=== PATIENT | female | born 1970 | race Caucasian/White ===

== ENCOUNTER → 2024-10-19 | Outpatient (CLI) | payer OTHER ==
[2024-10-19 14:33] VITALS: BP 125/81; PULSE 66; RESP 18; TEMP 97.8
--- NOTE | 2024-10-19 14:54 | P.SLEEP ---
History of Present Illness DATE: 10/19/2024 CONSULTATION/NEW PATIENT EVALUATION HISTORY OF PRESENT ILLNESS/SLEEP-WAKE EVALUATION: 54-year-old lady had been e valuated in the sleep center for possible obstructive sleep apnea hypopnea syndrome. SLEEP SCHEDULE: Usually sleep schedule p.m. to 7 AM on working days and from 11 PM to 8 AM on weekend. FALLING ASLEEP: Patient has difficulties with falling asleep, although no TV in bedroom. DURING SLEEP: Patient sleeps on the side position with loud snoring, witnessed episodes of stop breathing during the sleep. Patient wakes up from sleep about 5 times with 1 episode of nocturia. Positive history of dry mouth, gasping for air, sweating, heartburn, coughing. No history of hypnogogical hallucinations, sleep paralysis, or cataplexy. DURING THE DAY/WAKE STATE: In the morning patient wake up tired, has difficulties to pay attention, has problems with concentration. [place] sleepiness scale is 4. Patient may take 1 nap at afternoon. PAST MEDICAL HISTORY: Knee problems. PAST SURGICAL HISTORY: Partial hysterectomy, right knee replacement. MEDICATIONS: Please see below. SOCIAL HISTORY: See below. FAMILY HISTORY: See below. REVIEW OF SYSTEMS: Loud snoring, multiple awakenings from sleep. No fevers. No double vision. No recent chest pain. No shortness of breath. No abdominal pain. No bleeding episodes. No blood in urine. No seizure episodes. PHYSICAL EXAMINATION: GENERAL: A pleasant patient without any distress. VITAL SIGNS: See below, weight 224.2 pounds, BMI 37.6. HEENT: PERRLA, EOMI. Evaluation of oropharynx showed tongue protrudes midline, low position of soft palate Mallampati 3/4. NECK: Supple. No JVD. Thyroid is not palpable. 15.5 inches in circumference. LUNGS: Clear to percussion and to auscultation. Good air exchange. No wheezing or rhonchi. HEART: S1, S2 regular. No murmurs, gallops or rubs. ABDOMEN: Soft and nontender. Bowel sounds are present. No organomegaly appreciated. EXTREMITIES: No clubbing or cyanosis. CLINICAL DOCUMENTATION DEVELOPER: Awake, alert, and oriented x3. Cranial nerves 2 to 7 intact. There is no fasciculation or atrophy noted. No focal deficits observed. ASSESSMENT: 1. Loud snoring, witnessed episodes of stop breathing during the sleep, extremely low position of soft palate Mallampati 34, retrognathia millimeters. Obstructive sleep apnea hypopnea syndrome. 2. Obesity, BMI 37.4. 3. Status post tonsillectomy. 4. Status post partial hysterectomy. 5 status post right knee replacement. PLAN: 1. Polysomnography for evaluation of patient's breathing during sleep. 2. Following plan after reading sleep study. 3. Preferable position during sleep on the side. 4. No driving if patient feels any sleepiness. Patient is aware of civil and criminal liability for unsafe driving. 5. Sleep hygiene with regular sleep time for at least 7.5-8 hours. 6. Watching and losing weight. Thank you very much for referring this patient for consultation. Sincerely, Marin Camacho MD, PhD, FAASM. Diplomat of [employer], Sleep Medicine Board by [employer] [employer] [employer] [facility] [place] cc: Marcus Jeronimo MD Past Medical History Additional Past Medical History / Comment(s): Inconclusive sleep test in the past, History of Any Multi-Drug Resistant Organisms: None Reported Past Surgical History: Hysterectomy, Orthopedic Surgery, Tonsillectomy Additional Past Surgical History / Comment(s): Partial hysterectomy, r knee replacement Past Psychological History: No Psychological Hx Reported Smoking Status: Never smoker Past Alcohol Use History: Rare Past Drug Use History: None Reported - Past Family History Mother Additional Family Medical History / Comment(s): BREAST CANCER Father Family Medical History: Thyroid Disorder Physical Exam Vitals: Vital Signs Temp Pulse Resp BP Pulse Ox 10/19/24 14:29 97.8 F 66 18 125/81 97 Intake and Output 10/18/24 10/19/24 10/19/24 22:59 06:59 14:59 Other: Weight 101.661 kg Sleep Note - Sleep Data ESS Total: 4 - Sleep Note Sleep Note: Temperature: 97.8 F Pulse Rate: 66 Respiratory Rate: 18 Blood Pressure: 125/81 SpO2: 97 Height: 5 ft 4.7 in Weight: 101.661 kg BMI: Neck Circumference: 15.5
== END ==
LOC: 3 N SLEEP 13:50
PROVIDERS: ATTEND Internal Medicine
DX: G47.33 Obstructive sleep apnea (adult) (pediatric) (principal); E66.9 Obesity, unspecified; Z68.37 Body mass index [BMI] 37.0-37.9, adult; Z90.710 Acquired absence of both cervix and uterus; Z96.653 Presence of artificial knee joint, bilateral; Z90.81 Acquired absence of spleen
CPT/HCPCS: 99202